=== PATIENT | female | born 2000 | race Caucasian/White ===

== ENCOUNTER 2020-12-09 08:57 | Outpatient (CLI) | payer MEDICAID, SELFPAY ==
--- NOTE | 2020-12-09 09:06 | US_ITS ---
WS: [id number] ULTRASOUND EARLY TECHNIQUE: Transabdominal sonography of the pelvis was performed. Followed by transvaginal sonography to better evaluate the uterus and ovaries. CLINICAL INFORMATION: DATING/SUPERVISION NORMAL LMP: ? Beta hCG: Unknown. COMPARISON: None. FINDINGS: Cervix is long and closed. Cervix measures 4.5 cm. UTERUS AND GESTATIONAL SAC Intrauterine gestations: Estimated gestational age: 8w5d Estimated delivery July 16, 2021 Collins-rump length 2.0 cm Yolk sac: 0.5 cm. Collins rump length (CRL): 2.1 cm. heart motion: 171 BPM. Subchorionic hemorrhage: None. OVARIES Right ovary: Normal. Left ovary: Corpus luteum cyst FREE FLUID None. US/US OB <= 14 weeks fetus [id number] IMPRESSION: 1. Single live intrauterine with normal cardiac activity. 2. Estimated gestational age; 8w5d. Estimated delivery July 16, 2021 3. Corpus luteum cyst left ovary. Normal right ovary. 4. Cervix is long and closed.
== END 2020-12-09 08:58 | disposition home or self-care (01) ==
LOC: RAD 09:03
PROVIDERS: PCP Family Medicine; Visit Provider Family Medicine
DX: Z34.91 Encounter for supervision of normal pregnancy, unspecified, first trimester (principal); Z3A.08 8 weeks gestation of pregnancy
CPT/HCPCS: 76801

== ENCOUNTER 2021-03-04 07:01 | Outpatient (CLI) | payer MEDICAID, SELFPAY ==
--- NOTE | 2021-03-04 07:11 | US_ITS ---
WS: [id number] ULTRASOUND OB COMPLETE TECHNIQUE: Complete ultrasound. CLINICAL INFORMATION: ANATOMY COMPARISON: None. FINDINGS: Cervix measures 3.8 cm Single interuterine gestation is identified with vertex presentation. Placenta is posterior. Placenta grade 0. Normal amniotic fluid volume. cardiac activity: 144 BPM. AGA: 20w4d PERRY by ultrasound: 07/18/2021 Estimated weight: 371 g., %. BDP: 4.6 cm = 19w6d HC: 18.1 cm = 20w4d AC: 15.4 cm = 20w4d FEMUR LENGTH: 3.5 cm = 21w0d Anatomic survey: Anatomic survey is normal. Normal stomach. Kidneys and bladder are normal. Normal 3 vessel cord. Norm al 3 vessel cord insertion. Normal 4 chamber heart. Normal spine. Intracranial contents are normal. N ormal posterior fossa and cisterna magna. US/US OB >= 14 weeks fetus [id number] IMPRESSION: 1. Single intrauterine with visualized cardiac activity. AGA 20w4d w ith PERRY 07/18/2021. 2. Placenta is posterior. No evidence of abruption or previa. 3. anatomic survey is normal. 4. Normal amniotic fluid volume.
== END 2021-03-04 07:02 | disposition home or self-care (01) ==
PROVIDERS: PCP Family Medicine; Visit Provider Family Medicine
DX: Z36.89 Encounter for other specified antenatal screening (principal); Z3A.20 20 weeks gestation of pregnancy
CPT/HCPCS: 76805

== ENCOUNTER 2021-07-06 23:08 | Emergency (ER) | payer MEDICAID, SELFPAY ==
[2021-07-06 23:13] VITALS: BP 136/93; PULSE 98; RESP 18; TEMP 37; O2SAT 99; BMI 35.6
--- NOTE | 2021-07-06 23:15 | XRR_ITS ---
PROCEDURE INFORMATION: Exam: XR Chest Exam date and time: 07/06/2021 11:15 PM Age: 20 years old Clinical indication: Dyspnea; Patient HX: Difficulty breathing; Additional info: Fever TECHNIQUE: Imaging protocol: XR of the chest. Views: 1 view. COMPARISON: CR Chest 1 [place] [id number] 02/07/2016 7:01 PM FINDINGS: Lungs: Unremarkable. No consolidation. Pleural spaces: Unremarkable. No pleural effusion. No pneumothorax. Heart/Mediastinum: Unremarkable. No cardiomegaly. Bones/joints: Unremarkable. XR/XR chest 1V portable [id number] IMPRESSION: No acute findings.
--- NOTE | 2021-07-06 23:15 | ECG_ITS ---
[facility] Test Date: 2021-07-06 Pat Name: Janice Art Department: Room: Gender: Female Medical Officer: : 2000 Requested By: Raudel Meadows Order Number: [id number] Reading MD: Measurements Intervals [place] Rate: 106 P: 30 VA: 142 QRS: 15 QRSD: 88 T: 7 QT: 320 QTc: 425 Interpretive Statements SINUS TACHYCARDIA ABNORMAL RHYTHM ECG No previous ECG available for comparison [id number]
--- NOTE | 2021-07-06 23:30 | ED_ITS ---
HPI - SOB/Dyspnea General: Chief Complaint: Shortness of Breath/Dyspnea Stated Complaint: Diff Breathing Time Seen by Provider: 07/06/21 23:14 Source: patient Mode of arrival: ambulatory Limitations: no limitations History of Present Illness: HPI Narrative: 20-year-old female who is currently 9 months states that starting roughly 4 hours ago she had sudden onset of sharp left chest pain along with shortness of breath. She states that the pain is worse with deep breath in. Denies any vomiting. Denies any fever. She denies any abdominal pain and denies any vaginal bleeding or discharge. This is her first . She has not had any problems with the is not had any blood pressure issues. Associated symptoms: Reports chest pain; Deny abdominal pain, fever(s), nausea or vomiting Review of Systems Const: Denies: fever(s), chills, body aches or change in appetite Eyes: Denies: blurry vision or eye discomfort ENMT: Denies: throat pain or dental pain Card: Reports: chest pain Resp: Reports: dyspnea GI: Denies: abdominal pain, nausea, vomiting or diarrhea : Denies: dysuria Musc: Denies: neck pain or back pain Skin/Breast: Denies: rash Neuro: Denies: headache(s) Psych: Denies: depression Bradley/Lymph: Denies: easy bruising All/Imm: Denies: urticaria Physical Exam Const: COMMON NORMALS: no acute distress, patient oriented x3 and healthy appearing HENMT: COMMON NORMALS: normocephalic and atraumatic HEAD & SCALP: normocephalic and atraumatic Eye: COMMON NORMALS: Equal, round and reactive pupils present and EOMs intact bilaterally PUPIL: Yes Equal, round and reactive pupils present Neck/C-Spine: COMMON NORMALS: full ROM and supple Chest: COMMONS NORMALS: normal inspection of the chest and normal palpation of entire chest wall Resp: COMMON NORMALS: normal respiratory effort, No retractions, No use of accessory muscles and clear to auscultation bilaterally AUSCULTATION: clear to auscultation bilaterally Cardio: COMMON NORMALS: regular rate, regular rhythm and No murmurs present (Cardio) RATE: regular rate RHYTHM: regular rhythm GI: COMMON NORMALS: Normal to inspection, nondistended, normoactive bowel sounds present, Soft to palpation and non-tender PALPATION: Yes Soft to palpation OTHER: gravid uterus Extremity: COMMON NORMALS: normal to inspection and full ROM Neuro: COMMON NORMALS: patient oriented x3, moves all extremities and no focal motor deficits Psych: COMMON NORMALS: mental status grossly normal, Normal thought process present and cooperative THOUGHT PROCESS: Normal thought process present Skin: COMMON NORMALS: no rashes or lesions noted and no wounds GENERAL SKIN EXAM: no rashes or lesions noted Course Reevaluation(s): Reevaluation #1: I spoke to patient's OB Dr. Levin. With her history of onset of pain suddenly into the left side with pain with worse with inspiration and dyspnea and tachycardia. She also has an elevated D-dimer. And Dr. Levin her joint agreement I spoke to patient about this as well we all agreed to a CTA of the chest and will shield her baby. Time: 00:23 Vital Signs: Vital signs: Vital Signs Temperature 98.6 F 07/06/21 23:13 Pulse Rate 98 07/06/21 23:13 Respiratory Rate 22 H 07/07/21 00:13 Blood Pressure 136/93 07/06/21 23:13 Pulse Oximetry 99 07/06/21 23:13 MDM - SOB/Dyspnea MDM Narrative: Medical decision making narrative: Patient presents here with chest pain along with some dyspnea. Patient CTA here showed no pulmonary embolism. She has no signs of cardiac cause. Patient's blood pressures here been normal and she has no signs of preeclampsia. She has appoint with her OB in the morning. She is stable for discharge is to follow-up as scheduled tomorrow. She is return if worsening. She understands agrees to plan. Lab Data: Labs: Lab Results 07/06/21 07/06/21 07/06/21 Range/Units 23:28 23:28 23:28 WBC 16.4 H (4.0-10.0) 10^3/ uL RBC 4.15 (4.1-5.3) 10^6/u L Hgb 12.7 (11.5-15.3) g/dL Hct 38.6 (37.0-47.0) % MCV 93.0 (81-99) fl MCH 30.6 (28.0-34.0) pg MCHC 32.9 (30.0-36.0) g/dL RDW 13.2 (12.1-15.1) % Plt Count 214 (130-400) 10^3/c mm MPV 10.4 (7.4-10.4) fL Neut % (Auto) 70.8 % Lymph % (Auto) 19.3 % [place] % (Auto) 6.5 % Eos % (Auto) 0.6 % Baso % (Auto) 0.4 % Neut # (Auto) 11.62 H (1.8-7.7) 10^3/u L Lymph # (Auto) 3.2 (0.8-4.8) 10^3/u L [place] # (Auto) 1.1 H (0.2-0.9) 10^3/u L Eos # (Auto) 0.1 (0.0-0.8) 10^3/u L Baso # (Auto) 0.1 (0.0-0.1) 10^3/u L Nucleated RBC % (a uto) 0 % Nucleated RBCs # 0.0 /100WBC D-Dimer 1.57 H (0-0.59) ug/mIFE U Sodium 138 (136-145) mmol/L Potassium 3.7 (3.5-5.1) mmol/L Chloride 103 (98-107) mmol/L Carbon Dioxide 22 (22-29) mmol/L Anion Gap 16.7 (5-19) BUN 4 L (6-20) mg/dL Creatinine 0.4 L (0.5-0.9) mg/dL GFR Calculation 199.6 H (90-130) mL/min Glucose 100 (65-115) mg/dL Calculated Osmolal ity 283 L (285-295) mOsm/k g Calcium 9.5 (8.5-10.5) mg/dL Total Bilirubin 0.2 (0.15-1.2) mg/dL AST 16 (0-32) U/L ALT < 5 (0-33) U/L Alkaline Phosphata se 90 (35-105) IU/L NT-Pro-B Natriuret Pep 18 (0-125) pg/mL Total Protein 7.3 (6.6-8.7) g/dL Albumin 3.7 (3.5-5.2) g/dL Globulin 3.6 (1.3-4.6) g/dL Imaging Data^: CXR: Attestation: I personally reviewed and interpreted this imaging study as follows: My impression: no acute abnormality CT Chest: Attestation: I personally reviewed and interpreted this imaging study as follows: Radiologist's impression: [address] [place] [address] CT Scan Report Signed Patient: Janice Art Unit #: [id number] : 2000 Age/Sex: 20 / F ADM Date: 07/06/21 Loc: ER Room/Bed: Attending Dr: Ordering Provider/Ordering MD: Raudel Meadows MD Date of Service: 07/07/21 Procedure(s): CT angio chest PE protcl [id number] Accession Number(s): [id number] Report Number: [id number] PROCEDURE INFORMATION: Exam: CTA Chest With Contrast Exam date and time: 07/07/2021 12:20 AM Age: 20 years old Clinical indication: Dyspnea and shortness of breath; Intercostal; Patient HX: Patient 9 months presents with left anterior rib/chest pain with radiation to back and shoulder. C/O SOB with dyspnea. TECHNIQUE: Imaging protocol: Computed tomographic angiography of the chest with contrast. 3D rendering (Not supervised by radiologist): MIP and/or 3D reconstructed images were created by the technologist. Radiation optimization: All CT scans at this facility use at least one of these dose optimization techniques: automated exposure control; mA and/or kV adjustment per patient size (includes targeted exams where dose is matched to clinical indication); or iterative reconstruction. Contrast material: OMNI 350; Contrast volume: 80 ml; Contrast route: INTRAVENOUS (IV); COMPARISON: CR (CHEST, ) 07/06/2021 11:29 PM RADIATION DOSE METRICS: Total DLP (mGy-cm): 505.16 FINDINGS: Pulmonary arteries: There is low attenuation seen in the left infrahilar region interposed between the left lower lobe pulmonary artery and pulmonary veins possibly represent a small lymph node. Aorta: Unremarkable. No aortic aneurysm. No aortic dissection. Lungs: A pulmonary nodularity seen in the left lateral costophrenic recess measuring 9.3 x 13.9 x 12.7 mm. This may represent some nodular pleural scarring or noncalcified granuloma. Pleural spaces: See Lungs finding. Heart: Unremarkable. No cardiomegaly. No pericardial effusion. Lymph nodes: Unremarkable. No enlarged lymph nodes. Bones/joints: Unremarkable. No acute fracture. Soft tissues: Unremarkable. CT/CT angio chest PE protcl [id number] IMPRESSION: 1. There is no evidence for pulmonary emboli. 2. Small low-attenuation nodularity in the left infrahilar region interposed between left lower lobe pulmonary arteries and veins likely representing a small lymph node. 3. Pulmonary nodularity in the left lateral costophrenic recess measuring up to 13.9 mm. This likely represents a benign noncalcified granuloma or nodular pleural scarring. If the patient does not have known cancer, follow up should be based on clinical information because of the low risk of cancer in this age group. (Reference: Kasi) REFERENCES: Kasi Gonzalez, et al. Guidelines for Management of Incidental Pulmonary Nodules Detected on CT Images: From the Fleischner Society 2017. Radiology. 2017;284(1):228-243. Radiation Dose CTDIVOL = (mGy): DLP = 505.16 (mGy-cm) Dictated By: Michael Domingo MD Signed By: Michael Domingo MD Signed Date/Time: 07/07/21127 DD/ 5 EKG Data^: EKG 1: Attestation: I personally reviewed and interpreted this EKG as follows: EKG Interpretation Date: 07/06/21 EKG interpretation time: 23:38 Interpretation: sinus tach hr 106 with no s tor t wave abnormalities qrs 88 qtc 382 Discharge Plan Discharge Patient Disposition: Home Clinical Impression: Chest pain Condition: Stable Discharge Orders: Discharge ED (Routine); Ordered 07/07/21 Ordered By: Raudel Meadows Referrals: Ilir Levin MD [Primary Care Provider] - 1-3 days Discharge Diet: Advance as tolerated Discharge Activity: Resume usual activity Patient Instructions: Chest Pain (ED) Coding Level of Care Code ED Tongue And Groove Machine Feeder for Chg Fwd Exam Comprehensive
[2021-07-06] MEDS: ondansetron 2 mg/ML SDV 2 mL 4 MG IVP (23:33)
[2021-07-06 23:34] VITALS: RESP 20
[2021-07-06] MEDS: morphine 4 mg/mL SDV 1 mL IVP (23:34)
[2021-07-06 23:49] LABS: Basophils # 0.1 10^3/uL (0.0-0.1); Basophils % 0.4 %; Eosinophils # 0.1 10^3/uL (0.0-0.8); Eosinophils % 0.6 %; Hematocrit 38.6 % (37.0-47.0); Hemoglobin 12.7 g/dL (11.5-15.3); Lymphocytes # 3.2 10^3/uL (0.8-4.8); Lymphocytes % 19.3 %; Mean Corpuscular HGB Conc 32.9 g/dL (30.0-36.0); Mean Corpuscular Hemoglobin 30.6 pg (28.0-34.0); Mean Platelet Volume 10.4 fL (7.4-10.4); Monocytes # 1.1 10^3/uL (0.2-0.9); Monocytes % 6.5 %; Neutrophils # 11.62 10^3/uL (1.8-7.7); Neutrophils % 70.8 %; Nucleated Red Blood Cells % 0 %; Platelet Count 214 10^3/cmm (130-400); Red Blood Count 4.15 10^6/uL (4.1-5.3); Red Cell Distribution Width 13.2 % (12.1-15.1); White Blood Count 16.4 10^3/uL (4.0-10.0)
[2021-07-06 23:59] LABS: D Dimer 1.57 ug/mIFEU (0-0.59)
[2021-07-07 00:13] VITALS: RESP 22
[2021-07-07] MEDS: morphine 4 mg/mL SDV 1 mL IVP (00:13)
[2021-07-07 00:14] LABS: Alanine Aminotransferase < 5 U/L (0-33); Albumin Level 3.7 g/dL (3.5-5.2); Alkaline Phosphatase 90 IU/L (35-105); Anion Gap 16.7 (5-19); Aspartate Amino Transferase 16 U/L (0-32); Blood Urea Nitrogen 4 mg/dL (6-20); Calcium 9.5 mg/dL (8.5-10.5); Carbon Dioxide 22 mmol/L (22-29); Chloride 103 mmol/L (98-107); Globulin 3.6 g/dL (1.3-4.6); Glomerular Filtration Rate 199.6 mL/min (90-130); Glucose 100 mg/dL (65-115); NT Pro B Type Natriuretic Pept 18 pg/mL (0-125); Osmolality Calculated 283 mOsm/kg (285-295); Potassium 3.7 mmol/L (3.5-5.1); Sodium 138 mmol/L (136-145); Total Bilirubin 0.2 mg/dL (0.15-1.2); Total Protein 7.3 g/dL (6.6-8.7)
--- NOTE | 2021-07-07 00:20 | CTR_ITS ---
PROCEDURE INFORMATION: Exam: CTA Chest With Contrast Exam date and time: 07/07/2021 12:20 AM Age: 20 years old Clinical indication: Dyspnea and shortness of breath; Intercostal; Patient HX: Patient 9 months presents with left anterior rib/chest pain with radiation to back and shoulder. C/O SOB with dyspnea. TECHNIQUE: Imaging protocol: Computed tomographic angiography of the chest with contrast. 3D rendering (Not supervised by radiologist): MIP and/or 3D reconstructed images were created by the technologist. Radiation optimization: All CT scans at this facility use at least one of these dose optimization techniques: automated exposure control; mA and/or kV adjustment per patient size (includes targeted exams where dose is matched to clinical indication); or iterative reconstruction. Contrast material: OMNI 350; Contrast volume: 80 ml; Contrast route: INTRAVENOUS (IV); COMPARISON: CR (CHEST, ) 07/06/2021 11:29 PM RADIATION DOSE METRICS: Total DLP (mGy-cm): 505.16 FINDINGS: Pulmonary arteries: There is low attenuation seen in the left infrahilar region interposed between the left lower lobe pulmonary artery and pulmonary veins possibly represent a small lymph node. Aorta: Unremarkable. No aortic aneurysm. No aortic dissection. Lungs: A pulmonary nodularity seen in the left lateral costophrenic recess measuring 9.3 x 13.9 x 12.7 mm. This may represent some nodular pleural scarring or noncalcified granuloma. Pleural spaces: See Lungs finding. Heart: Unremarkable. No cardiomegaly. No pericardial effusion. Lymph nodes: Unremarkable. No enlarged lymph nodes. Bones/joints: Unremarkable. No acute fracture. Soft tissues: Unremarkable. CT/CT angio chest PE protcl [id number] IMPRESSION: 1. There is no evidence for pulmonary emboli. 2. Small low-attenuation nodularity in the left infrahilar region interposed between left lower lobe pulmonary arteries and veins likely representing a small lymph node. 3. Pulmonary nodularity in the left lateral costophrenic recess measuring up to 13.9 mm. This likely represents a benign noncalcified granuloma or nodular pleural scarring. If the patient does not have known cancer, follow up should be based on clinical information because of the low risk of cancer in this age group. (Reference: Kasi) REFERENCES: Kasi Gonzalez et al. Guidelines for Management of Incidental Pulmonary Nodules Detected on CT Images: From the Fleischner Society 2017. Radiology. 2017;284(1):228-243. Radiation Dose CTDIVOL = (mGy): DLP = 505.16 (mGy-cm)
[2021-07-07] MEDS: iohexol 350 mg/mL 100 mL Btl IV (00:58)
[2021-07-07 01:51] VITALS: BP 127/75; PULSE 88; RESP 18; O2SAT 99
== END 2021-07-07 01:45 | disposition home or self-care (01) ==
PROVIDERS: Emergency Provider Emergency Medicine; PCP Family Medicine
DX: R07.9 Chest pain, unspecified (principal)
CPT/HCPCS: 71045; 71275; 80053; 83880; 85025; 85378; 93005; 96374; 96375; 99284; J2270; J2405; Q9967

== ENCOUNTER 2021-07-14 21:50 | Inpatient (IN) | payer MEDICAID, SELFPAY ==
[2021-07-14] VITALS (7 sets, daily range): BP systolic 106–124; BP diastolic 66–79; PULSE 88–121; RESP 16; TEMP 36.3; BMI 36.3
[2021-07-14 21:39] LABS: Actim Prom Positive
--- NOTE | 2021-07-14 22:10 | P.HP_ITS ---
Providers/Chief Complaint Admitting Physician: Ilir Levin MD Primary Care Provider: Ilir Levin MD Chief Complaint: Possible ROM History of Present Illness Janice Art is a 20 year old @ 39.4 weeks gestation by 8-week ultrasound without LMP. complicated by recent miscarriages, on progesterone supplementation first trimester, vasovagal syncope with dental work. The patient presented to labor and delivery due to concerns for spontaneous rupture membranes. She was walking in the store and noticed some leaking of fluid around 8:00 PM on 07/14/2021. The leaking continued and eventually she had a large gush. For this reason she presented to labor delivery triage. In triage she was noted to have a positive actim PROM. The patient has had some contractions associated with this. She denies any vaginal bleeding. She denies any fevers, chest pain, cough, shortness of breath, nausea, vomiting, diarrhea, constipation. Medications/Allergies Allergies Allergy/AdvReac Type Severity Reaction Status Date / Time No Known Allergies Allergy Verified 07/06/21 23:13 PFSH Acute PFSH: Social History (Updated 07/14/21 @ 22:13 by Ilir Levin MD) Smoking and tobacco status: never smoked Alcohol intake: never Substance/Drug Use: never Vitals/I&O/Wt Last Vital Signs Temp 97.3 F L 07/14/21 21: Pulse 121 H 07/14/21 21:19 BP 106/79 07/14/21 21:19 Physical Exam Narrative: EXAM NARRATIVE: General: Alert and oriented x3 Eyes: Pupils equal round and reactive to light and accommodation Mouth: Mucous membranes moist, pharynx non-erythematous Cardiac: Regular rate and rhythm without murmurs Lungs: Clear to auscultation bilaterally without wheezes, crackles or rhonchi Abdomen: Soft, non-tender, fundus consistent with gestational age Extremities: Trace edema in the bilateral lower extremities A&P Additional A&P Information The patient has had spontaneous rupture of membranes. She has been carmelita along with this. Contractions are every 2 to 3 minutes. heart tones are in the mid 140s with a category 1 tracing. She is GBS negative. Covid swab was done earlier today and is pending. She has no symptoms of Covid. We will proceed with inpatient treatment and if her contractions spaced out or she is no longer making change after 2 hours, we will add Pitocin for augmentation of labor. The patient may have a laboring epidural when she reaches 3 to 4 cm. All questions were answered. The patient is in agreement with the current plan of care. Attestations Medical Necessity Statement*: The patient will be here for greater than 2 midnights due to routine intrapartum and management of labor and delivery. Coding Level of Care Code Acute Field Administrative Assistant for Allyson Love
[2021-07-14 22:36] LABS: Basophils % 0.2 %; Eosinophils # 0.1 10^3/uL (0.0-0.8); Hematocrit 35.5 % (37.0-47.0); Hemoglobin 11.8 g/dL (11.5-15.3); Lymphocytes # 2.5 10^3/uL (0.8-4.8); Lymphocytes % 19.8 %; Mean Corpuscular HGB Conc 33.2 g/dL (30.0-36.0); Mean Corpuscular Hemoglobin 30.4 pg (28.0-34.0); Mean Corpuscular Volume 91.5 fl (81-99); Mean Platelet Volume 10.6 fL (7.4-10.4); Monocytes % 7.6 %; Neutrophils # 8.69 10^3/uL (1.8-7.7); Neutrophils % 69.8 %; Nucleated Red Blood Cells % 0 %; Platelet Count 219 10^3/cmm (130-400); Red Blood Count 3.88 10^6/uL (4.1-5.3); Red Cell Distribution Width 13.2 % (12.1-15.1); White Blood Count 12.5 10^3/uL (4.0-10.0)
[2021-07-14] MEDS: butorphanol 2 mg/mL SDV 1 mL 1 MG IVP (23:06)
[2021-07-15] VITALS (115 sets, daily range): BP systolic 78–133; BP diastolic 49–79; PULSE 70–150; RESP 16–17; TEMP 36.1–36.9; O2SAT 93–100
[2021-07-15] MEDS: butorphanol 2 mg/mL SDV 1 mL 1 MG IVP (01:40)
[2021-07-15] MEDS: lactated ringers 1,000 ML 999 ML IV ×2 (02:26→04:26)
[2021-07-15] MEDS: oxytocin 30 UNIT/500 ML BAG IV (07:02)
[2021-07-15] MEDS: dextrose 5%-lactated ringers 1,000 ML 125 ML IV (08:01)
--- NOTE | 2021-07-15 08:11 | PM.PN ---
Subjective Subjective: Interval history: The patient has been carmelita overnight and changed from 2 to 3 cm. She received a laboring epidural that is helping on the right, however not as much on the left. She is afebrile. She has no other concerns. Vitals/I&O/Wt Last Vital Signs Temp 97.3 F L 07/14/21 21:22 Pulse 88 07/15/21 08:05 Resp 16 07/14/21 21:51 BP 125/70 07/15/21 07:59 Pulse Ox 100 07/15/21 08:05 07/14/21 07/15/21 07/15/21 22:59 06:59 14:59 Intake Total 1732.600 / 1732.600 Output Total 400 / 400 Balance 1332.600 / 1332.600 Weight last 48 hrs Weight 212 lb Physical Exam Narrative: EXAM NARRATIVE: General: Alert and oriented x3 Cardiac: Regular rate and rhythm without murmurs Lungs: Clear to auscultation bilaterally without wheezes, crackles or rhonchi Abdomen: Soft, non-tender, fundus consistent with gestational age Extremities: Trace edema in the bilateral lower extremities Urinary Catheter Management^: Diaz Latex: Cath Placed During This Visit: yes Reason for Continuing Indwelling Catheter: Required Immobilization for Trauma or Surgery or Anesthesia Urinary Catheter Date of Insertion: 07/15/21 Urinary Catheter Time of Insertion: 05:51 Data : 07/14/21 22:15 A&P Additional A&P Information The patient is making gradual change and we will continue with IV Pitocin to augment labor. She is carmelita every 2 to 3 minutes. heart tones are in the mid 120s with moderate variability and good accelerations. She has a category 1 tracing. She is currently afebrile. We will plan to have anesthesia reevaluate for her epidural as it is not working sufficiently. The patient is in agreement with current plan of care. All questions were answered. Attestations Medical Necessity Statement*: The patient continues to need inpatient care and her stay will cross 2 midnights. Coding Level of Care Code Acute Pump Service Supervisor for Allyson Love
--- NOTE | 2021-07-15 12:47 | PM.DELIVERY ---
Delivery Note: Date of delivery: July 15, 2021 Pre-delivery diagnoses: 1. Intrauterine at 39.5 weeks gestation 2. Vasovagal syncope with dental work 3. Progesterone supplementation during first trimester Post-delivery diagnoses: 1. Intrauterine status post spontaneous vaginal delivery at 39.5 weeks gestation 2. Vasovagal syncope with dental work 3. Progesterone supplementation during first trimester 4. Delivery of healthy female weighing 7 pounds 6 ounces with Apgars of 8 and 9 Procedure: Spontaneous vaginal delivery Op report anesthesia: Epidural Findings: Janice Art is a 20 year old G3 now P1 status post spontaneous vaginal delivery @ 39.5 weeks gestation by 8-week ultrasound without LMP. was complicated by recent miscarriages, on progesterone supplementation first trimester, vasovagal syncope with dental work. Pre-Delivery Course: The patient presented to labor and delivery triage with spontaneous rupture membranes at 8 PM on 07/14/2021. The patient was carmelita every 2 to 3 minutes. She continued to contract overnight and her contractions started to space out, so she was started on IV Pitocin for augmentation of labor. She received a laboring epidural. The epidural initially only helped on the right side. It was readjusted by anesthesia and has done well to give adequate anesthesia bilaterally. There were no concerning heart tones. The patient made gradual change and was complete by 11:17 AM on 07/15/2021. The patient did not have any fevers during the labor course. There was no concerning tachycardia. Delivery: The patient began pushing at 11:35 AM on 07/15/2021. The patient pushed well and the infant descended. The delivered in the OA position at 12:12 PM on 07/15/2021. The right shoulder delivered with downward pressure. The rest of the infant delivered without complication. There was no nuchal cord. The infant's mouth and nose were bulb suctioned by myself. The infant was crying immediately upon delivery. The infant was placed on the mother's chest where the nurses were waiting to care for her. The cord was clamped by myself after approximately 1 minute and cut by the infant's father. The cord was then drained of blood and traction was placed on umbilical cord and uterine massage was carried out. The placenta delivered at 12:17 PM without complication. The placenta was noted to be intact with a central umbilical cord insertion site. The cervix was inspected and no lacerations were noted. Vaginal wall was inspected and there were bilateral abrasions on the labia. There was a second-degree laceration on the right vaginal wall that was bleeding. This was repaired using 3-0 Vicryl in a running fashion. No anesthesia was needed as the epidural was providing adequate anesthesia. Rectal exam did not show any signs of stitches in the rectal vault. Currently both the patient and infant are doing well. EBL was 100 mL. A&P Assessment and plan (1) Spontaneous vaginal delivery: Status: Acute Coding Level of Care Code Acute Director Of Contracts for Chg Fwd Diagnoses Spontaneous vaginal delivery O80
[2021-07-15] MEDS: ibuprofen 800 mg tablet PO ×2 (14:25→21:54)
[2021-07-15] MEDS: benzocaine-menthol 78 gm Canister 1 SPRAY TOPICAL (15:17)
[2021-07-15] MEDS: lanolin oint 7 gm 1 APPLIC TOPICAL (15:17)
[2021-07-15] MEDS: acetaminophen 325 mg Tablet 650 MG PO (19:35)
[2021-07-15] MEDS: docusate sodium 100 mg Capsule PO (19:35)
[2021-07-16 01:03] LABS: Hematocrit 32.6 % (37.0-47.0); Hemoglobin 10.7 g/dL (11.5-15.3); Mean Corpuscular HGB Conc 32.8 g/dL (30.0-36.0); Mean Corpuscular Hemoglobin 30.1 pg (28.0-34.0); Mean Corpuscular Volume 91.6 fl (81-99); Mean Platelet Volume 10.6 fL (7.4-10.4); Platelet Count 230 10^3/cmm (130-400); Red Blood Count 3.56 10^6/uL (4.1-5.3); Red Cell Distribution Width 13.4 % (12.1-15.1); White Blood Count 18.5 10^3/uL (4.0-10.0)
[2021-07-16 02:35] VITALS: BP 109/64; PULSE 88; TEMP 36.4; O2SAT 97
[2021-07-16] MEDS: acetaminophen 325 mg Tablet 650 MG PO (03:55)
[2021-07-16 04:12] VITALS: PULSE 88; TEMP 36.4; O2SAT 97
[2021-07-16 06:15] VITALS: BP 110/65; PULSE 80; TEMP 36.7; O2SAT 97
--- NOTE | 2021-07-16 07:07 | ANE.PACU2 ---
Inpatient post-anesthesia follow up: Airway intact: Yes Vital signs: Temperature 98.4 F Pulse Rate 86 Respiratory Rate 16 Blood Pressure 106/71 Pulse Oximetry 98 Oxygen Delivery Me thod Room Air Oxygen Flow Rate Fraction of Inspir ed Oxygen Hydration adequate: Yes Nausea and vomiting: No Pain level: 2 Mental status: Baseline
--- NOTE | 2021-07-16 08:47 | P.DS_ITS ---
Discharge Providers Date of Admission: 07/14/21 21:50 Date of Discharge: July 16, 2021 Attending Provider at Admission: Ilir Levin MD Attending Provider at Discharge: Ilir Levin MD Primary Care Provider: Ilir Levin MD Diagnoses at Discharge Discharge Diagnosis (1) Spontaneous vaginal delivery: Status: Resolved Reason for Visit Reason for Visit: Possible ROM Hospital Course Hospital Course Pre-Delivery Course: The patient presented to labor and delivery triage with spontaneous rupture membranes at 8 PM on 07/14/2021. The patient was carmelita every 2 to 3 minutes. She continued to contract overnight and her contractions started to space out, so she was started on IV Pitocin for augmentation of labor. She received a laboring epidural. The epidural initially only helped on the right side. It was readjusted by anesthesia and has done well to give adequate anesthesia bilaterally. There were no concerning heart tones. The patient made gradual change and was complete by 11:17 AM on 07/15/2021. The patient did not have any fevers during the labor course. There was no concerning tachycardia. Delivery: The patient began pushing at 11:35 AM on 07/15/2021. The patient pushed well and the descended. The infant delivered in the OA position at 12:12 PM on 07/15/2021. The right shoulder delivered with downward pressure. The rest of the infant delivered without complication. There was no nuchal cord. The 's mouth and nose were bulb suctioned by myself. The infant was crying immediately upon delivery. The was placed on the mother's chest where the nurses were waiting to care for her. The cord was clamped by myself after approximately 1 minute and cut by the infant's father. The cord was then drained of blood and traction was placed on umbilical cord and uterine massage was carried out. The placenta delivered at 12:17 PM without complication. The placenta was noted to be intact with a central umbilical cord insertion site. The cervix was inspected and no lacerations were noted. Vaginal wall was inspected and there were bilateral abrasions on the labia. There was a second-degree laceration on the right vaginal wall that was bleeding. This was repaired using 3-0 Vicryl in a running fashion. No anesthesia was needed as the epidural was providing adequate anesthesia. Rectal exam did not show any signs of stitches in the rectal vault. Currently both the patient and infant are doing well. EBL was 100 mL. course: The patient has done very well without any complications. She is ambulating, voiding, passing gas and tolerating food by mouth. Her bleeding is well controlled. Her pain is well controlled. Routine discharge instructions were discussed and the patient's questions were answered. The patient is in agreement with discharge home at this time. Physical Exam Narrative: EXAM NARRATIVE: General: Alert and oriented x3 Cardiac: Regular rate and rhythm without murmurs Lungs: Clear to auscultation bilaterally without wheezes, crackles or rhonchi Abdomen: Soft, uterus is mildly tender and firm and 2 cm below the umbilicus. Extremities: Trace edema in the bilateral lower extremities Urinary Catheter Management^: Diaz Latex: Cath Placed During This Visit: yes, but has since been removed by the nurse Reason for Continuing Indwelling Catheter: Required Immobilization for Trauma or Surgery or Anesthesia Urinary Catheter Date of Insertion: 07/15/21 Urinary Catheter Time of Insertion: 05:51 Date Urinary Catheter Removed: 07/15/21 Time Urinary Catheter Discontinued: 11:30 Discharge Data Data Completed and Pending: Labs from last 24 hours 07/16/21 00:48 WBC 18.5 H RBC 3.56 L Hgb 10.7 L Hct 32.6 L MCV 91.6 MCH 30.1 MCHC 32.8 RDW 13.4 Plt Count 230 MPV 10.6 H Vitals: Last Vital Signs Temp 98.0 F 07/16/21 06:15 Pulse 80 07/16/21 06:15 Resp 16 07/15/21 22:15 BP 110/65 07/16/21 06:15 Pulse Ox 97 07/16/21 06:15 Discharge Plan Discharge Patient Disposition: Home Condition: Good Prescriptions: New ibuprofen 800 mg Tablet 800 mg PO TID Qty: 60 RF: 0 hydrocodone-acetaminophen 5-325 mg Tablet 1 tab PO Q6H PRN (Reason: Moderate To Severe Pain) Qty: 10 RF: 0 docusate sodium 100 mg Capsule 100 mg PO BID Qty: 30 RF: 0 Continued prenat.vits,austin,iqd-liyi-pwgut Tablet 1 tab PO DAILY RF: 0 Iron (ferrous sulfate) 325 mg (65 mg iron) Tablet 325 mg PO DAILY RF: 0 Discontinued folic acid 1 mg Tablet 1 mg PO DAILY RF: 0 Discharge Orders: Discharge Order (Routine); Ordered 07/16/21 Ordered By: Ilir Levin Referrals: Ilir Levin MD [Primary Care Provider] - 08/27/21 10:00 am (Your 6 week appointment has been made for 08/27/2021 at 10:00 am.) Discharge Diet: Regular Discharge Activity: Increase activity as tolerated Patient Instructions: Depression (GEN), Perineal Care (DC), Vaginal Delivery (DC), Preeclampsia During (DC), Bleeding (DC), OB Discharge Report, OB Food/Drug Interaction Guide, Opioid Safety, OB Home Care, OB Pr[employer] Parent Packet Activity Restrictions/Additional Instructions: Nothing per vagina for 6 weeks. If you have any concerns prior to your appointment with Dr. Levin, please austin l for a sooner appointment. Discharge Attestations Time Spent in Discharge Care*: greater than 30 min Quality Metrics Clinical Quality Measures During this hospital stay, did patient experience: None Coding Level of Care Code Acute Chg FW DC note Diagnoses Spontaneous vaginal delivery O80
[2021-07-16] MEDS: docusate sodium 100 mg Capsule PO (09:11)
[2021-07-16] MEDS: ibuprofen 800 mg tablet PO (09:11)
[2021-07-16] MEDS: prenatal vitamin Capsule 1 CAP PO (09:11)
[2021-07-16 09:15] VITALS: BP 115/70; PULSE 97; RESP 16; TEMP 36.4; O2SAT 94
[2021-07-16 15:45] VITALS: BP 106/71; PULSE 86; RESP 16; TEMP 36.9; O2SAT 98
== END 2021-07-16 16:31 | disposition home or self-care (01) | DRG 807 ==
LOC: OPOB 21:52 → OBGYN 21:52
PROVIDERS: Admitting Provider Family Medicine; PCP Family Medicine; Visit Provider Family Medicine
DX: O70.1 Second degree perineal laceration during delivery (principal); Z37.0 Single live birth; Z3A.39 39 weeks gestation of pregnancy
CPT/HCPCS: 36415; 51702; 59025; 59409; 84112; 85025; 85027; 96374; 96376; 98960; 99211; J0595; J2795